=== PATIENT | male | born 1955 | race Caucasian/White ===

== ENCOUNTER 2022-12-16 08:29 | Day surgery (SDC) | payer MEDICARE ==
[~2022-12-16] VITALS: Ht 185.4 cm; Wt 80.6 kg
[2022-12-16] VITALS (8 sets, daily range): BP systolic 125–142; BP diastolic 72–88
[2022-12-16] MEDS ORDERED: SILD100T PO (09:30)
[2022-12-16] MEDS ORDERED: BIOT5000 PO (09:30)
[2022-12-16] MEDS ORDERED: MULT-1085 PO (09:30)
--- NOTE | 2022-12-16 10:15 | NUR ---
Report given to Nohelia TAM
--- NOTE | 2022-12-16 10:37 | NUR ---
Assumed care of patient from David Hennessy RN. Vital signs stable and patient flat. No neuro changes noted.
[2022-12-16 11:29] LABS: APPEARANCE,CSF CLEAR; CSF SUPERNATANT COLOR COLORLESS; CSF VOLUME 14 ML
[2022-12-16 11:30] LABS: CSF RBC 0 /CU MM (0); CSF WBC CT 2 /CU MM (0-5); TUBE# COUNTED 4
[2022-12-16 17:07] LABS: TOTAL PROTEIN,CSF 47 MG/DL (30-60)
[2022-12-16 17:08] LABS: GLUCOSE,CSF 63 MG/DL (40-75)
[2022-12-17 07:13] LABS: IMMUNOGLOBULIN G, QN, SERUM 859 mg/dL (603-1613)
[2022-12-19 11:13] LABS: IMMUNOGLOBULIN G, QN CSF 2.2 mg/dL (0.0-10.3)
[2022-12-20 13:16] LABS: LYME IGG P23 AB Absent (.); LYME IGG P28 AB Absent (.); LYME IGG P30 AB Absent (.); LYME IGG P41 AB Present (.); LYME IGG P45 AB Absent (.); LYME IGG P58 AB Absent (.); LYME IGG P66 AB Absent (.); LYME IGG P93 AB Absent (.); LYME IGG WB INTERP Negative (.); LYME IGM P23 AB Absent (.); LYME IGM P39 AB Absent (.); LYME IGM P41 AB Absent (.); LYME IGM WB INTERP Negative (.)
[2022-12-20 15:10] LABS: VDRL, CSF Non Reactive (Non Rea:<1:1)
== END 2022-12-16 12:05 | disposition home or self-care (01) ==
LOC: SSTAY O 08:29
PROVIDERS: ATTEND Psychiatry & Neurology Neurology
DX: G61.81 Chronic inflammatory demyelinating polyneuritis (principal); G62.9 Polyneuropathy, unspecified; Z79.899 Other long term (current) drug therapy
CPT/HCPCS: 36415; 62328; 77003; 82040; 82042; 82164; 82784; 83916; 86592; 86617; 88108; 89051